=== PATIENT | female | born 1960 | race Caucasian/White ===

== ENCOUNTER 2017-08-09 16:42 | Inpatient (IN) | payer OTHER ==
[~2017-08-09] VITALS: Ht 165.1 cm; Wt 70.8 kg
[~2017-08-09 16:42] MED LIST: AMBIEN5 MG; CLONAZEPAM2 MG PO; FIORICET TABLET1 TAB PO; HUMULIN N100 U/ML; INTESTINEX680 MG; KEPPRA1000 MG; NOVOLIN 70100 UNITS/; SYNTEST D.S TAB1 TAB PO; SYNTHROID50 MCG; ZOLOFT100 MG PO
== END 2017-11-28 10:01 | disposition other institution (70) | DRG 853 ==
LOC: ER 16:42 → SEC-K 08-10 09:00 → MEDJ 08-10 09:00 → SURH 08-11 06:41 → MEDJ 08-11 08:23 → MEDI 08-11 08:23 → MEDJ 08-12 12:00
PROC: 3E0F7GC Introduction of Other Therapeutic Substance into Respiratory Tract, Via Natural or Artificial Opening (ICD-10-PCS; principal; 2017-08-11)
PROC: 4A12X4Z Monitoring of Cardiac Electrical Activity, External Approach (ICD-10-PCS; 2017-08-11)
PROC: 8E0ZXY6 Isolation (ICD-10-PCS; 2017-08-12)
PROC: 02H633Z Insertion of Infusion Device into Right Atrium, Percutaneous Approach (ICD-10-PCS; 2017-08-13)
PROC: B54DZZZ Ultrasonography of Bilateral Lower Extremity Veins (ICD-10-PCS; 2017-08-13)
PROC: 30233N1 Transfusion of Nonautologous Red Blood Cells into Peripheral Vein, Percutaneous Approach (ICD-10-PCS; 2017-08-15)
PROC: 0QB10ZZ Excision of Sacrum, Open Approach (ICD-10-PCS; 2017-08-16)
PROC: CP1Z1ZZ Planar Nuclear Medicine Imaging of Musculoskeletal System, All using Technetium 99m (Tc-99m) (ICD-10-PCS; 2017-08-19)
PROC: CW1NLZZ Planar Nuclear Medicine Imaging of Whole Body using Gallium 67 (Ga-67) (ICD-10-PCS; 2017-08-20)
PROC: 0JB70ZZ Excision of Back Subcutaneous Tissue and Fascia, Open Approach (ICD-10-PCS; 2017-08-21)
PROC: 0JB70ZZ Excision of Back Subcutaneous Tissue and Fascia, Open Approach (ICD-10-PCS; 2017-08-28)
PROC: 5A1955Z Respiratory Ventilation, Greater than 96 Consecutive Hours (ICD-10-PCS; 2017-08-30)
PROC: 4A033R1 Measurement of Arterial Saturation, Peripheral, Percutaneous Approach (ICD-10-PCS; 2017-08-30)
PROC: 0JB70ZZ Excision of Back Subcutaneous Tissue and Fascia, Open Approach (ICD-10-PCS; 2017-09-18)
PROC: 02HV33Z Insertion of Infusion Device into Superior Vena Cava, Percutaneous Approach (ICD-10-PCS; 2017-11-16)
DX: A41.1 Sepsis due to other specified staphylococcus (principal); E11.10 Type 2 diabetes mellitus with ketoacidosis without coma; R65.21 Severe sepsis with septic shock; L89.154 Pressure ulcer of sacral region, stage 4; J96.01 Acute respiratory failure with hypoxia; J18.9 Pneumonia, unspecified organism; I46.8 Cardiac arrest due to other underlying condition; E46 Unspecified protein-calorie malnutrition; G40.801 Other epilepsy, not intractable, with status epilepticus; B37.49 Other urogenital candidiasis; G93.1 Anoxic brain damage, not elsewhere classified; N17.8 Other acute kidney failure; A42.89 Other forms of actinomycosis; B37.0 Candidal stomatitis; M86.18 Other acute osteomyelitis, other site; I82.432 Acute embolism and thrombosis of left popliteal vein; I82.412 Acute embolism and thrombosis of left femoral vein; E86.0 Dehydration; Z93.0 Tracheostomy status; Z74.01 Bed confinement status; Z93.1 Gastrostomy status; E03.8 Other specified hypothyroidism; B96.1 Klebsiella pneumoniae [K. pneumoniae] as the cause of diseases classified elsewhere; D69.59 Other secondary thrombocytopenia; E87.6 Hypokalemia; B95.2 Enterococcus as the cause of diseases classified elsewhere; B95.62 Methicillin resistant Staphylococcus aureus infection as the cause of diseases classified elsewhere; B96.5 Pseudomonas (aeruginosa) (mallei) (pseudomallei) as the cause of diseases classified elsewhere; B96.20 Unspecified Escherichia coli [E. coli] as the cause of diseases classified elsewhere; I87.2 Venous insufficiency (chronic) (peripheral); D64.89 Other specified anemias